=== PATIENT | male | born 1935 | race Caucasian/White ===

== ENCOUNTER 2019-05-05 10:29 | Outpatient (CLI) | payer MEDICARE, BC ==
[2019-05-05] VITALS (17 sets, daily range): BP systolic 107–136; BP diastolic 66–90
== END 2019-05-05 23:59 | disposition home or self-care (01) ==
LOC: CARD DIAG 10:29
PROVIDERS: ATTEND Internal Medicine
DX: R42 Dizziness and giddiness (principal)
CPT/HCPCS: 93660

== ENCOUNTER 2025-02-14 08:54 | Inpatient (IN) | payer BC, MEDICARE, OTHER ==
[~2025-02-14] VITALS: Ht 180.3 cm; Wt 76.9 kg
--- NOTE | 2025-02-14 09:19 | Physician Documentation ---
History of Present Illness General Chief Complaint: Chest Pain Stated Complaint: CP Time Seen by MD: 09:17 History of Present Illness Initial Comments The patient is an 89-year-old male with a history of coronary artery disease (status post three stents and a cardiac catheterization showing a 40% occlusion of a major coronary artery), pacemaker, who is transferred here from [facility] and where he presented with chest pain last night that responded twice to nitroglycerin. He is currently pain-free. The patient's clean out driller is Dr. Demond Kidd at [facility]. Review of Systems ROS Constitutional: Denies chills, fatigue, fever, weight gain or weight loss. HEENT: Denies hearing loss, sinus pressure or visual changes. Respiratory: Denies cough, shortness of breath or wheezing. Cardiovascular: Chest pain. Gastrointestinal: Denies abdominal pain, blood in stool, constipation, diarrhea, heartburn, loss of appetite, nausea or vomiting. Genitourinary: Denies painful urination (dysuria), excessive amount of urine (polyuria) or urinary frequency. Metabolic/Endocrine: Denies cold intolerance, heat intolerance, excessive thirst (polydipsia) or excessive hunger (polyphagia). Neurological: Denies dizziness, extremity numbness, extremity weakness, headaches, seizures or tremors. Psychiatric: Denies anxiety or depression. Integumentary: Denies breast discharge, breast lump, hives, mole change(s), rash or skin lesion. Musculoskeletal: Denies back pain, joint pain, joint swelling or neck pain. Hematologic: Denies easily bleeding, easily bruises, lymphedema or issues with blood clots. Immunologic: Denies food allergies or seasonal allergies. Physical Exam Physical Exam Vital Signs: Temperature: 97.8, Source: Oral, Heart Rate: 60, Respiratory Rate: 12, BP: 147/68, Pulse Oximetry: 98, Weight: 76.900 Oxygen Flow Rate: 0 Physical Exam Physical Exam Vitals and nursing note reviewed. Constitutional: General: Patient is awake, alert, oriented x 4 in no acute distress and well appearing. Speech is clear and lucid. Appearance: Normal appearance. Patient is not ill-appearing, toxic-appearing or diaphoretic. HENT: Head: Normocephalic and atraumatic. Mouth/Throat: Mouth: Mucous membranes are moist. Pharynx: Oropharynx is clear. Eyes: General: No scleral icterus. Extraocular Movements: Extraocular movements intact. Pupils: Pupils are equal, round, and reactive to light. Cardiovascular: Rate and Rhythm: Normal rate and regular rhythm. Heart sounds: No murmur heard. Pulmonary: Effort: No respiratory distress. Breath sounds: No wheezing, rhonchi or rales. Abdominal: General: There is no distension. Palpations: There is no fluid wave, hepatomegaly or mass. Tenderness: There is no abdominal tenderness. There is no guarding. Musculoskeletal: General: No swelling or deformity. Skin: Coloration: Skin is not jaundiced. Findings: No erythema or rash. Neurological: Mental Status: Patient is alert. Progress Results/Orders Results/Orders Orders - SRINATH HUSAIN MD Chest,Single View (02/14/25 09:17) Page Hospitalist (02/14/25 10:10) Completed Orders - SRINATH HUSAIN MD CMP (02/14/25 09:17) Cbc/Diff (02/14/25 09:17) Hs Troponin I W Calculations (02/14/25 09:17) D-Dimer (02/14/25 09:17) Pt Inr (02/14/25 09:17) PBNP (02/14/25 09:17) Chest,Single View (02/14/25 09:17) Electrocardiogram (02/14/25 ) Vital Signs 02/14/25 02/14/25 08:59 09:33 Temp 97.8 Pulse 60 Resp 12 B/P (MAP) 147/68 Pulse Ox 98 97 O2 Delivery Room Air* O2 Flow Rate 0 0 FiO2 N/A Laboratory Tests Test 02/14/25 09:46 White Blood Count 7.2 Red Blood Count 3.99 L Hemoglobin 12.9 L Hematocrit 37.7 L Mean Corpuscular Volume 94.4 Mean Corpuscular Hemoglobin 32.2 H Mean Corpuscular Hemoglobin Concent 34.1 Red Cell Distribution Width 15.6 H Platelet Count 239 Mean Platelet Volume 7.6 Neutrophils (%) (Auto) 66.4 Lymphocytes (%) (Auto) 22.1 Monocytes (%) (Auto) 8.7 Eosinophils (%) (Auto) 2.6 Basophils (%) (Auto) 0.2 Neutrophils # (Auto) 4.8 Lymphocytes # (Auto) 1.6 Monocytes # (Auto) 0.6 Eosinophils # (Auto) 0.2 Basophils # (Auto) 0.0 CBC Comment Prothrombin Time 11.3 INR International Normalized Ratio 1.1 D-Dimer 0.39 D-Dimer Comment Coagulation Comments Sodium Level 146 H Potassium Level 4.2 Chloride Level 108 H Carbon Dioxide Level 30.8 Anion Gap 7 L Blood Urea Nitrogen 16 Creatinine 1.32 H Estimated GFR/1.73 m2 51 BUN/Creatinine Ratio 12.1 Glucose Level 86 Calcium Level 8.5 Total Bilirubin 0.7 Aspartate Amino Transf (AST/SGOT) 28 Alanine Aminotransferase (ALT/SGPT) 23 Alkaline Phosphatase 129 H Troponin I High Sensitivity 20 Pro-B-Type Natriuretic Peptide 1344 H Total Protein 6.6 Albumin 3.0 L Globulin 3.6 Albumin/Globulin Ratio 0.8 L Chemistry Comments Medical Decision Making Findings This 89-year-old male with a strand history of coronary artery disease presents with symptoms consistent with unstable angina, transferred here from [facility]. EKG medically necessary in the evaluation of chest pain and interpreted by me at the time of patient evaluation. Rhythm is atrial paced rhythm with left bundle branch block with a rate of 60. Impression: Abnormal EKG. Departure Disposition: ADMITTED INPATIENT Admitted to Inpatient Unit: to hospitalist Admission Level of Care: PCU with Tele Impression: Primary Impression: Unstable angina Condition: Stable Referrals: NO PRIMARY CARE PROVIDER (PCP) Signature Scribe Signature: . Attestation: . SRINATH HUSAIN MD Feb 14, 2025 09:19
--- NOTE | 2025-02-14 09:28 | ELECTROCARDIOGRAPH REPORT ---
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 Neymar Lowe Measurements Intervals [place] Rate: 60 P: 0 CO: 223 QRS: -1 QRSD: 161 T: 201 QT: 461 QTc: 461 Interpretive Statements Atrial-paced rhythm Left bundle branch block Electronically Signed On 02-22-2025 17:58:[address] Neymar Lowe Please click the below link to view image of tracing.
--- NOTE | 2025-02-14 09:46 | RADIOLOGY REPORT ---
DI CHEST,SINGLE VIEW, HISTORY: Chest pain COMPARISON: None None TECHNICAL DATA: 1 view of the chest was obtained. FINDINGS: Lines and tubes: A cardiac pacer is seen. Cardiomediastinal silhouette: normal Pulmonary vasculature: normal Lung expansion: normal Lung airspace: normal Lung interstitium: normal Pleura: normal Pneumothorax: no Bones: Unremarkable Other: no IMPRESSION: No acute intrathoracic abnormality.
[2025-02-14 10:21] LABS: BASOPHILS % (AUTO) 0.2 % (0-1); EOSINOPHILS # (AUTO) 0.2 X10'3 (0-0.9); EOSINOPHILS % (AUTO) 2.6 % (0-6); HEMATOCRIT 37.7 % (42.0-52.0); HEMOGLOBIN 12.9 g/dl (14.0-17.9); LYMPHOCYTES # (AUTO) 1.6 X10'3 (1.1-4.8); LYMPHOCYTES % (AUTO) 22.1 % (21-51); MEAN CORPUSCULAR HEMOGLOBIN 32.2 PG (27.0-31.0); MEAN CORPUSCULAR HGB CONC 34.1 g/dL (33.0-36.5); MEAN CORPUSCULAR VOLUME 94.4 FL (78-98); MEAN PLATELET VOLUME 7.6 FL (7.4-10.4); MONOCYTES # (AUTO) 0.6 X10'3 (0-0.9); MONOCYTES % (AUTO) 8.7 % (2-12); NEUTROPHILS # (AUTO) 4.8 X10'3 (1.8-7.7); NEUTROPHILS % (AUTO) 66.4 % (42-75); PLATELET COUNT 239 X10'3 (140-440); RED BLOOD COUNT 3.99 X10'6 (4.70-6.10); RED CELL DISTRIBUTION WIDTH 15.6 % (11.5-14.5); WHITE BLOOD COUNT 7.2 X10'3 (4.5-11.0)
[2025-02-14 10:30] LABS: D-DIMER 0.39 MG/L FEU (0-0.50); INR 1.1 INR; PROTHROMBIN TIME 11.3 SECONDS (9.0-12.0)
[2025-02-14 10:44] LABS: ALANINE AMINOTRANSFERASE 23 U/L (12-78); ALBUMIN/GLOBULIN RATIO 0.8 (1.1-1.5); ALKALINE PHOSPHATASE 129 IU/L (46-116); ANION GAP 7 (8-16); ASPARTATE AMINO TRANSFERASE 28 U/L (10-37); BILIRUBIN,TOTAL 0.7 MG/DL (0.1-1.0); BLOOD UREA NITROGEN 16 MG/DL (7-18); BUN/CREATININE RATIO 12.1 (10.0-20.0); CALCIUM 8.5 MG/DL (8.5-10.1); CHLORIDE 108 MMOL/L (99-107); CREATININE 1.32 MG/DL (0.60-1.10); GLUCOSE 86 MG/DL (70-104); POTASSIUM 4.2 MMOL/L (3.5-5.1); PRO BRAIN NATRIURETIC PEPTIDE 1344 PG/ML (0-450); SODIUM 146 MMOL/L (135-145); TOTAL CARBON DIOXIDE 30.8 MMOL/L (24-32); TOTAL PROTEIN 6.6 G/DL (6.4-8.2); eCRCL 41 ML/MIN; eGFR 51 ML/MIN
[2025-02-14] MEDS ORDERED: potassium Cl 40MEQ/1/2NS 520ml 520 ML IV PRN (11:10)
[2025-02-14] MEDS ORDERED: magnesium sulf-water 2g/50mL 50 ML IV PRN (11:10)
[2025-02-14] MEDS ORDERED: morphine 2 MG/ML inj. syringe IV PRN ×2 (11:10)
[2025-02-14] MEDS ORDERED: magnesium Cl slow-release 64mg tablet PO PRN (11:10)
[2025-02-14] MEDS ORDERED: nitroGLYCERIN 0.4mg SUBLingual tab SL PRN ×2 (11:10→17:20)
[2025-02-14] MEDS ORDERED: aminophylline 500mg/20ml vial IV PRN (11:10)
[2025-02-14] MEDS ORDERED: potassium Cl 20 mEq SR tablet PO PRN ×2 (11:10)
[2025-02-14] MEDS ORDERED: HYDROcodone/acetaminophen 5mg/325mg tablet PO PRN (11:10)
[2025-02-14] MEDS ORDERED: metoprolol tartrate 1mg/ml inj IV PRN (11:10)
[2025-02-14] MEDS ORDERED: ondansetron/PF 4mg/2ml inj IV PRN (11:10)
[2025-02-14] MEDS ORDERED: HYDROcodone/acetaminophen 10/325mg tab PO PRN (11:10)
[2025-02-14] MEDS ORDERED: magnesium sulf-water 4G/100mL 100 ML IV PRN (11:10)
[2025-02-14] MEDS ORDERED: acetaminophen 325mg tablet PO PRN ×2 (11:10)
[2025-02-14] MEDS ORDERED: AMLO5TAB16 PO (11:34)
[2025-02-14] MEDS ORDERED: LANS15CA18 PO (11:34)
[2025-02-14] MEDS ORDERED: MULT-1085 PO (11:34)
[2025-02-14] MEDS ORDERED: TELM40TA8 PO (11:34)
[2025-02-14] MEDS ORDERED: PANT40TA54 PO (11:34)
[2025-02-14] MEDS ORDERED: ATOR-2 PO (11:34)
[2025-02-14] MEDS ORDERED: ASPI-1265 PO (11:34)
[2025-02-14] MEDS ORDERED: METO-395 PO (11:34)
[2025-02-14] MEDS ORDERED: AMI200T PO (11:34)
[2025-02-14] MEDS ORDERED: OMEG1CAP61 PO (11:34)
[2025-02-14] MEDS ORDERED: CLOP75TA34 PO (11:34)
[2025-02-14] MEDS ORDERED: LANS30CA56 PO (11:34)
[2025-02-14] MEDS ORDERED: APIX2.5T PO (11:34)
--- NOTE | 2025-02-14 16:42 | HISTORY AND PHYSICAL-Residence ---
History & Physical Providers to CC Resident Creating Document: LENIN KLEIN, RES ~ History of Present Illness Primary Medical Doctor: PCP: In [place] Reason for Admit\Complaint: Chest pain History of Present Illness PCP: The patient does not remember the name, PCP in [place] Trauma Counsellor: Bernabe Garland. 89-year-old male patient with past medical history of diabetes mellitus, hypertension, ACS, strokes, Claros's esophagus, skin cancer, came to the hospital with chief complaint of chest pain. The patient states that he had a chest pain last night approximately 930 p.m. while the patient was laying down. The patient describes this chest pain as a pressure type, for over 10 in intensity, radiation to the left arm, he denies any sweating or shortness of breath. At that time the patient decided to take nitroglycerin which he had which helped with the pain until complete resolution. The resolution of the pain last for approximately 2 minutes and the pain came back again reason for which he decided to take a 2nd nitroglycerin which helped to relieve the pain. His was concerned and the patient was taken to [facility]. Due to the concern of acute coronary syndrome the patient was transferred to [facility]. Allergies: Coded Allergies: No Known Allergies (Unverified , 02/14/25) Home Medications Home Medications Active Reported Lovaza* ([place]-3 Acid Ethyl Esters*) 1 Gm Capsule 2 Cap PO Q12H 30 Days Multi Vitamin Daily (Multivitamin) 1 Each Tablet 1 Tab PO DAILY 30 Days Aspirin 81 Mg Tab.chew 1 Tab PO DAILY 30 Days Clopidogrel (Clopidogrel Bisulfate) 75 Mg Tablet 1 Tab PO DAILY 30 Days Do not stop medication unless instructed by prescriber. Lansoprazole 15 Mg Capsule.dr 1 Cap PO DAILY 30 Days Amlodipine Besylate 5 Mg Tablet 1 Tab PO DAILY Lansoprazole 30 Mg Capsule.dr 1 Cap PO DAILY Eliquis (Apixaban) 2.5 Mg Tablet 1 Tab PO BID Metoprolol Succinate 25 Mg Tab.sr.24h 1 Tab PO QAM Atorvastatin Calcium 80 Mg Tablet 1 Tab PO DAILY Telmisartan 40 Mg Tablet 1 Tab PO DAILY Pantoprazole Sodium 40 Mg Tablet.dr 1 Tab PO QAM Cordarone (Amiodarone HCl) 200 Mg Tablet 200 Mg PO DAILY Past Medical History Past Medical History Diabetes mellitus. Hypertension. ACS s/p five stents. 2 strokes. GERD. Claros esophagus. Skin cancer. Past Surgical History Surgical History Comment S/p five stents. S/p pacemaker. 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 HEENT: Conjunctive are pink, sclerae clear, no icterus, pupil is equal in both sides, reactive to light, no ear discharge, no pharyngeal erythema or an edema. Neck: Supple, no JVD, no lymphadenopathy and thyromegaly. Chest: Equal air entry on both lungs, no additional sounds no rhonchi no wheezing at the moment. Presence of pacemaker in the left side of the chest Cardiovascular: S1-S2 regular sinus rhythm and, regular rate, no gallops, no rubs, no murmurs Abdomen: No visible peristalsis, Bowel sounds present on auscultation, soft, nontender, no guarding, no rigidity Extremities: No obvious deformities, no pitting edema bilaterally, capillary refill intact, peripheral pulsations are intact on both sides Central Nervous System: No focal neurological deficits, no motor or sensory weakness in all 4 extremities, could move all 4 extremities, 2+ deep tendon reflexes, negative Babinski. Musculoskeletal: No joint swelling, deformities, inflammations, and no scoliosis and back tenderness Skin: Warm and dry. Diagnostic Data Last Recorded Lab Results: 02/14/25 0946 02/14/25 0946 Diagnostic Data: Laboratory Tests Test 02/14/25 09:46 Prothrombin Time 11.3 SECONDS (9.0-12.0) INR International Normalized Ratio 1.1 INR D-Dimer 0.39 MG/L FEU (0-0.50) D-Dimer Comment Coagulation Comments Advance Care Planning Advanced Care plannin - 30 Minutes (I spent a total of 17 minutes on reviewing various resuscitative measures/ACP with the patient at the time of admission. The patient has decided on a full code status.) Additional Plan Assessment and plan: 89-year-old male patient came to the hospital transferred from [facility] with chief complaint of chest pain. Chest pain: To rule out ACS: Heart score: 5 points: History of CAD S/p 5 stents: The patient came to the hospital with chief complaint of chest pain, pressure type, radiation to the left upper extremity. EKG, atrial paced rhythm, left bundle-branch block. Heart rate 60, normal axis deviation. Echocardiogram: LVEF 40-45%, RVSP 31 mmHg. Troponin levels within reference range. Aspirin 81 mg daily. Metoprolol 25 mg daily. Nitroglycerin 0.4 mg SL PRN. Follow-up Lexiscan in a.m. Possible prerenal MANI on CKD likely secondary to dehydration: Creatinine 1.32, GFR 51, BUN/creatinine ratio 12.1. Unknown baseline creatinine. Follow-up urine lytes. NS at 20 mL/hour. Normocytic normochromic anemia: Hemoglobin 12.9, hematocrit 37.7, MCV 94.4. Follow-up iron studies. Barretts esophagus: GERD: Protonix 40 mg daily. Hypertension: Current blood pressure 142/66. Continue metoprolol 25 mg daily. AFib rate controlled: Symptomatic bradycardia, s/p pacemaker: We will continue metoprolol 25 mg daily. We will continue apixaban after med reconciliation. Code status: Full code DVT prophylaxis: Heparin 5000 units b.i.d. Analgesia/sedation: Carefree Line/tube: PIV GI prophylaxis: Protonix Nutrition: Heart healthy diet. NPO after midnight. PT: Ordered Prognosis: Guarded Disposition: The patient will be admitted to PCU with telemetry. Lenin Elizabeth Internal Medicine Resident [facility] Date of Service: Feb 14, 2025 Billing Provider: RAISSA CAPELLAN MD Common Visit Codes: 73247-BDZRUEZ INP/OBS CARE (HIGH) Secondary Visit Codes: 61416-[id number] CARE PLAN 30 MINUTES LENIN KLEIN, RES Feb 14, 2025 16:42 RAISSA CAPELLAN MD Feb 14, 2025 17:58
[2025-02-14] MEDS ORDERED: DEXT15DR7 OP (17:33)
[2025-02-14] MEDS: normal saline 1000ml 1,000 ML IV SCH (17:55)
[2025-02-14 18:14] LABS: CHOL/HDL RATIO 2.5 (0.00-4.99); CHOLESTEROL 129 MG/DL (0-200); HDL CHOLESTEROL 51 MG/DL (35-60); LDL CHOLESTEROL 62 MG/DL (50-100); TRIGLYCERIDES 56 MG/DL (20-135)
--- NOTE | 2025-02-14 18:55 | CARDIOLOGY REPORT ---
APPROVED REPORT EXAM: Comprehensive 2D, Doppler, and color-flow Echocardiogram. Patient Location: ER 4 Heart Rate: 60's bpm Rhythm: SINUS Indications CHEST PAIN STENTS x5 PACEMAKER ELEVATED PBNP (1344) 2D Dimensions RVDd 3.2 cm IVSd 1.1 (0.7-1.1cm) LVDd 5.0 cm PWd 1.2 (0.7-1.1cm) IVSs 1.2 (0.8-1.2cm) LVDs 3.9 (2.5-4.0cm) PWs 1.2 (0.8-1.2cm) LVOT Diameter 2.19 (1.8-2.4cm) Ao Asc Diam.3.57 cmFS (%) 21.3 % SV 50.5 ml CO 3.1 L/min M-Mode Dimensions Left Atrium(MM) 3.50 (2.5-4.0cm) Aortic Root 3.93 (2.2-3.7cm) Aortic Valve AoV Peak [place]. 329.0 cm/s AoV VTI 82.5 cm AO Peak GR. 43.3 mmHg AO Mean GR. 24 mmHg LVOT VTI 23.84 cm LVOT Peak [place]. 93.0 cm/s BRENDA(VTI)/BSA 1.08 cm2/m2 BRENDA (VTI) 1.08 cm2 Mitral Valve MV E Velocity 74.7 cm/s MV Peak Gr. 2 mmHg MV DECEL TIME 192 ms MV A Velocity 142.4 cm/s MV PHT 64 ms E/A Ratio 0.5 MVA (PHT) 3.44 cm2 MV VMax70.0 cm/s Tricuspid Valve TR P. Velocity 230 cm/s RAP ESTIMATE 10 mmHg TR Peak Gr. 21 mmHg RVSP 31 mmHg LEFT VENTRICLE Normal LV size and wall thickness. Overall systolic function is moderately reduced. LVEF is 35%. RIGHT VENTRICLE RV is normal size and function. Pacemaker wire in right heart. RVSP is estimated at 31 mmHg. ATRIA The left atrium size is normal. AORTIC VALVE Trileaflet AV appears sclerotic without stenosis. BRENDA is measured at 1.08 cmsq. Peak / mean gradients of 43/24 mmHG. Peak velocity is measured at 329 cm/s. 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 MITRAL VALVE Mild MV annular calcification without stenosis. Mild regurgitation. TRICUSPID VALVE TV appears structurally normal with trace regurgitation. PULMONIC VALVE Normal PV without stenosis, physiologic insufficiency. GREAT VESSELS Aortic root is mildly dilated. IVC is not well visualized. PERICARDIUM Normal pericardium. No effusion. Conclusion Normal LV size and wall thickness. Overall systolic function is moderately reduced. LVEF is 35%. RV is normal size and function. Pacemaker wire in right heart. RVSP is estimated at 31 mmHg. The left atrium size is normal. Trileaflet AV appears sclerotic without stenosis. BRENDA is measured at 1.08 cmsq. Peak / mean gradien ts of 43/24 mmHG. Peak velocity is measured at 329 cm/s. Stenosis severity is likely severe, but f ails to meet criteria due to low flow/ low gradient conditions.Trace insufficiency. Mild MV annular calcification without stenosis. Mild regurgitation. TV appears structurally normal with trace regurgitation. Aortic root is mildly dilated. Normal pericardium. No effusion.
[2025-02-14 19:14] LABS: FERRITIN 97 NG/ML (26-388)
[2025-02-14 19:21] LABS: TOTAL IRON BINDING CAPACITY 295 UG/DL (259-388)
[2025-02-14 19:30] VITALS: BP 124/51; PULSE 60; RESP 12; TEMP 98.1; O2SAT 96
[2025-02-14 19:39] LABS: % IRON SATURATION 16 % (11-46); IRON 48 UG/DL (53-167)
[2025-02-14 20:00] VITALS: RESP 12; O2SAT 96
[2025-02-14] MEDS: heparin, porcine 5000 units/ml vial SQ SCH (21:18)
[2025-02-15] VITALS (14 sets, daily range): BP systolic 116–154; BP diastolic 53–75; PULSE 60–67; RESP 13–18; TEMP 97.6–98.5; O2SAT 95–100
[2025-02-15 06:53] LABS: BASOPHILS % (AUTO) 0.3 % (0-1); EOSINOPHILS # (AUTO) 0.2 X10'3 (0-0.9); EOSINOPHILS % (AUTO) 3.1 % (0-6); HEMATOCRIT 35.3 % (42.0-52.0); LYMPHOCYTES # (AUTO) 1.7 X10'3 (1.1-4.8); LYMPHOCYTES % (AUTO) 22.9 % (21-51); MEAN CORPUSCULAR HEMOGLOBIN 31.8 PG (27.0-31.0); MEAN CORPUSCULAR VOLUME 93.6 FL (78-98); MEAN PLATELET VOLUME 7.7 FL (7.4-10.4); MONOCYTES # (AUTO) 0.7 X10'3 (0-0.9); MONOCYTES % (AUTO) 9.9 % (2-12); NEUTROPHILS # (AUTO) 4.7 X10'3 (1.8-7.7); NEUTROPHILS % (AUTO) 63.8 % (42-75); PLATELET COUNT 243 X10'3 (140-440); RED BLOOD COUNT 3.78 X10'6 (4.70-6.10); RED CELL DISTRIBUTION WIDTH 15.1 % (11.5-14.5); WHITE BLOOD COUNT 7.4 X10'3 (4.5-11.0)
[2025-02-15 07:07] LABS: ALANINE AMINOTRANSFERASE 23 U/L (12-78); ALBUMIN 2.6 G/DL (3.4-5.0); ALBUMIN/GLOBULIN RATIO 0.8 (1.1-1.5); ALKALINE PHOSPHATASE 113 IU/L (46-116); ANION GAP 7 (8-16); ASPARTATE AMINO TRANSFERASE 27 U/L (10-37); BILIRUBIN,TOTAL 0.7 MG/DL (0.1-1.0); BLOOD UREA NITROGEN 15 MG/DL (7-18); BUN/CREATININE RATIO 11.9 (10.0-20.0); CALCIUM 8.3 MG/DL (8.5-10.1); CHLORIDE 110 MMOL/L (99-107); CREATININE 1.26 MG/DL (0.60-1.10); GLUCOSE 90 MG/DL (70-104); SODIUM 145 MMOL/L (135-145); TOTAL CARBON DIOXIDE 27.6 MMOL/L (24-32); TOTAL PROTEIN 5.9 G/DL (6.4-8.2); eCRCL 43 ML/MIN; eGFR 54 ML/MIN
[2025-02-15] MEDS: metoprolol succinate 25mg (24-HOUR) SR. Tablet PO SCH (08:41)
[2025-02-15] MEDS: pantoprazole 40mg Tablet.DR PO SCH (08:41)
[2025-02-15 08:54] LABS: FREE T4 (FREE THYROXINE) 0.82 NG/DL (0.73-1.40)
[2025-02-15] MEDS: regadenoson 0.4mg/5ml syringe IV PRN (10:46)
[2025-02-15] MEDS: aspirin 81mg tab.chew PO SCH (12:27)
--- NOTE | 2025-02-15 12:38 | RADIOLOGY REPORT ---
EXAM: NM NM BERYL SCAN HISTORY: unstable angina, history of coronary artery disease COMPARISON: None TECHNIQUE: REST STUDY: 8 mCi of Technetium 99m-Tetrofosmin. STRESS STUDY: 38 mCi of Technetium 99m-Tetrofosmin. The patient was stressed with regadenoson 0.4 mg IV. Cardiac-gated tomographic images of the heart were obtained in the short and long axis projections. I mages were obtained at rest and immediately following stress. Stress and rest images were performed o n the same day. FINDINGS: There is thinning of the inferior wall of the left ventricle near the base, greater on the rest image s. No other perfusion defects are identified on the stress or rest images. Wall motion analysis demon strates hypokinesis, greatest in the inferior wall. Left ventricular ejection fraction is 45%. TID 1. 09. IMPRESSION: 1. 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 2. No evidence of stress-induced ischemia. 3. Left ventricular hypokinesis, greatest along the inferior wall, with mildly low left ventricular e jection fraction of 45%.
--- NOTE | 2025-02-15 15:30 | CONSULTATION REPORT ---
History of Present Illness Providers to CC CC: KAYLAH ZAVALA MD; ANJANA QURESHI MD ~ Reason for Admit\Admit Dx: Cardiology consultation Refering MD: PCP: In [place] History of Present Illness This is an 89-year-old male who presents secondary to chest pain. He originally presented to [facility] and was transferred for higher level of care. He has past medical history significant for CVA (residual dizziness), CAD with hx of stents, HLD, DMII (diet controlled), a-fib, PPM. Has had chest pain in the left chest described as squeezing with sharp pain down his left arm. No associated shortness for breath, nausea, vomiting, diaphoresis. No lower extremity edema. Denies dyspnea on exertion. Denies recent illness, fevers, chills. Patient underwent nuclear stress test that revealed old infarct to the inferior wall and no reversible ischemia. TTE demonstrates LVEF 35%. AV moderate stenosis. BRENDA 1.0 cm2, mean gradient 24 mm of mercury and peak velocity 329 cm/sec. Mild MR, trace TR. Chest x-ray with no acute cardiopulmonary pathology. EKG atrial paced. Currently, the patient is resting comfortably in bed. Denies current chest pain or pressure. No shortness a breath. Allergies: Coded Allergies: No Known Allergies (Unverified , 02/14/25) Home Medications Home Medications Active Reported Artificial Tears Eye Drops (Dextran 70/Hypromellose) 15 Ml Drops 15 Ml OP Lovaza* ([place]-3 Acid Ethyl Esters*) 1 Gm Capsule 2 Cap PO Q12H 30 Days Multi Vitamin Daily (Multivitamin) 1 Each Tablet 1 Tab PO DAILY 30 Days Aspirin 81 Mg Tab.chew 1 Tab PO DAILY 30 Days Eliquis (Apixaban) 2.5 Mg Tablet 1 Tab PO BID Metoprolol Succinate 25 Mg Tab.sr.24h 1 Tab PO QAM Atorvastatin Calcium 80 Mg Tablet 1 Tab PO DAILY Telmisartan 40 Mg Tablet 1 Tab PO DAILY Pantoprazole Sodium 40 Mg Tablet.dr 1 Tab PO QAM Past Medical History Medical History Comment Diabetes mellitus, diet controlled Question of GERD versus Claros's esophagus. Pending GI follow up Coronary artery disease with multiple stents in the past. CVA with residual dizziness Atrial fibrillation on Eliquis Hypertension Past Surgical History Surgical History Comment Pacemaker Coronary angiogram with stents (unknown anatomy) Past Family History Family History Comment Noncontributory Past Social History Social History Comment Patient is a lifelong nonsmoker. Has not drank alcohol for many years. No recreational drug use. Lives with . Physical Exam Last Vital Signs Recorded: RN Vital Signs have been reviewed: Yes, Temperature: 98.1, Source: Oral, Heart Rate: 60, Respiratory Rate: 16, BP: 133/59, Pulse Oximetry: 99, Weight: 76.900 Physical Exam General: Awake, alert, oriented. No apparent distress Neck: Supple. Normal range of motion. No JVD Respiratory: Lungs are clear to auscultation bilaterally. No respiratory distress. Chest: Normal shape and size. No accessory muscle use. Cardiovascular: Regular rate and rhythm. S1-S2. I/IV NANDO RUSB. Gastrointestinal: Abdomen is soft. Nontender to palpation. Extremities: No lower extremity edema, cyanosis or clubbing. Psychiatric: Normal mood and affect. Skin: Normal color. Warm and dry. Review of Systems ROS Patient chest pain which has resolved. No associated shortness for breath, nausea, vomiting, diaphoresis. No recent illness, fevers or chills. Was asked, but otherwise denies review of systems. Results EKG EKG EKG atrial paced. No acute ST changes. Echocardiogram Echocardiogram EXAM: Comprehensive 2D, Doppler, and color-flow Echocardiogram. Patient Location: ER 4 Heart Rate: 60's bpm Rhythm: SINUS Indications CHEST PAIN STENTS x5 PACEMAKER ELEVATED PBNP (1344) 2D Dimensions RVDd 3.2 cm IVSd 1.1 (0.7-1.1cm) LVDd 5.0 cm PWd 1.2 (0.7-1.1cm) IVSs 1.2 (0.8-1.2cm) LVDs 3.9 (2.5-4.0cm) PWs 1.2 (0.8-1.2cm) LVOT Diameter 2.19 (1.8-2.4cm) Ao Asc Diam. 3.57 cm FS (%) 21.3 % SV 50.5 ml CO 3.1 L/min M-Mode Dimensions Left Atrium(MM) 3.50 (2.5-4.0cm) Aortic Root 3.93 (2.2-3.7cm) Aortic Valve AoV Peak [place]. 329.0 cm/s AoV VTI 82.5 cm AO Peak GR. 43.3 mmHg AO Mean GR. 24 mmHg LVOT VTI 23.84 cm LVOT Peak [place]. 93.0 cm/s BRENDA(VTI)/BSA 1.08 cm2/m2 BRENDA (VTI) 1.08 cm2 Mitral Valve MV E Velocity 74.7 cm/s MV Peak Gr. 2 mmHg MV DECEL TIME 192 ms MV A Velocity 142.4 cm/s MV PHT 64 ms E/A Ratio 0.5 MVA (PHT) 3.44 cm2 MV VMax 70.0 cm/s Tricuspid Valve TR P. Velocity 230 cm/s RAP ESTIMATE 10 mmHg TR Peak Gr. 21 mmHg RVSP 31 mmHg LEFT VENTRICLE Normal LV size and wall thickness. Overall systolic function is moderately reduced. LVEF is 35%. RIGHT VENTRICLE RV is normal size and function. Pacemaker wire in right heart. RVSP is estimated at 31 mmHg. ATRIA The left atrium size is normal. AORTIC VALVE Trileaflet AV appears sclerotic without stenosis. BRENDA is measured at 1.08 cmsq. Peak / mean gradients of 43/24 mmHG. Peak velocity is measured at 329 cm/s. 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 MITRAL VALVE Mild MV annular calcification without stenosis. Mild regurgitation. TRICUSPID VALVE TV appears structurally normal with trace regurgitation. PULMONIC VALVE Normal PV without stenosis, physiologic insufficiency. GREAT VESSELS Aortic root is mildly dilated. IVC is not well visualized. PERICARDIUM Normal pericardium. No effusion. Conclusion Normal LV size and wall thickness. Overall systolic function is moderately reduced. LVEF is 35%. RV is normal size and function. Pacemaker wire in right heart. RVSP is estimated at 31 mmHg. The left atrium size is normal. Trileaflet AV appears sclerotic without stenosis. BRENDA is measured at 1.08 cmsq. Peak / mean gradients of 43/24 mmHG. Peak velocity is measured at 329 cm/s. 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 Mild MV annular calcification without stenosis. Mild regurgitation. TV appears structurally normal with trace regurgitation. Aortic root is mildly dilated. Normal pericardium. No effusion. Dictated by:LUDMILA LONDONO MD Dictation date and time:02/14/25 2474 Electronically Signed by: LUDMILA LONDONO MD Date and Time: 02/14/25 1855 Cardiac Stress Test Cardiac Stress Test EXAM: NM NM BERLY SCAN HISTORY: unstable angina, history of coronary artery disease COMPARISON: None TECHNIQUE: REST STUDY: 8 mCi of Technetium 99m-Tetrofosmin. STRESS STUDY: 38 mCi of Technetium 99m-Tetrofosmin. The patient was stressed with regadenoson 0.4 mg IV. Cardiac-gated tomographic images of the heart were obtained in the short and long axis projections. Images were obtained at rest and immediately following stress. Stress and rest images were performed on the same day. FINDINGS: There is thinning of the inferior wall of the left ventricle near the base, greater on the rest images. No other perfusion defects are identified on the stress or rest images. Wall motion analysis demonstrates hypokinesis, greatest in the inferior wall. Left ventricular ejection fraction is 45%. TID 1.09. IMPRESSION: 1. 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 2. No evidence of stress-induced ischemia. 3. Left ventricular hypokinesis, greatest along the inferior wall, with mildly low left ventricular ejection fraction of 45%. Electronically Signed by:MAHI COPELAND MD Date & Time: 02/15/25 123 Dictated by: MAHI COPELAND MD Dictation date and time: 02/15/251234 X-ray X-ray DI CHEST,SINGLE VIEW, HISTORY: Chest pain COMPARISON: None None TECHNICAL DATA: 1 view of the chest was obtained. FINDINGS: Lines and tubes: A cardiac pacer is seen. Cardiomediastinal silhouette: normal Pulmonary vasculature: normal Lung expansion: normal Lung airspace: normal Lung interstitium: normal Pleura: normal Pneumothorax: no Bones: Unremarkable Other: no IMPRESSION: No acute intrathoracic abnormality. Electronically Signed by:JF BUI MD Date & Time: 02/14/2544 Diagram Lab Result Diagram: 02/15/2561102/15/25 0612 Lab Results Hemoglobin A1c 6.0 ProBNP 1344 High sensitivity troponin 20 TSH 11.90 Free T4 0.82 Triglycerides 56, total cholesterol 129, LDL 62, HDL 51 Assessment/Plan Additional Plan This is an 89-year-old male who presents for chest pain. The following is his problem list: Angina High sensitivity troponin negative Stress test without reversible ischemia Angiogram April 2024 with no obstructive coronary artery disease --Recommend continued outpatient follow-up with his primary presales consultant, Dr. Qureshi --continue beta-blockers. --Consider addition of isosorbide. History of coronary artery disease --continue high-intensity statin with goal LDL less than 55 --continue outpatient follow up with primary presales consultant. Heart failure with reduced ejection fraction TTE reveals LVEF of 35% --recommend that amlodipine be stopped --continue metoprolol succinate 25 mg daily. --continue Telmisartan and consider transitioning to Entresto --recommend starting Jardiance 10 mg daily --consider addition of spironolactone mg daily --follow up closely with primary presales consultant. Aortic stenosis, moderate Aortic valve area 1.08 cm2, mean gradient 24 mm of mercury and peak velocity 3.29 m/sec. May represent low-flow, low gradient severe aortic stenosis. --recommend repeat echocardiogram as per primary presales consultant. Paroxysmal atrial fibrillation Currently atrial paced rhythm --continue Eliquis. Other comorbidities: Diabetes mellitus with hemoglobin A1c 6.0 Hypertension Question of Barretts esophagus History of CVA Pacemaker in-situ Case was discussed with Dr. Harman Zavala. He is in agreement with the above plan. Supervising MD Supervising Physician: MARIAMA Mejía NP Feb 15, 2025 15:30
--- NOTE | 2025-02-15 16:28 | PROGRESS NOTE- Residence ---
Progress Note - Resident Providers to CC Resident Creating Document: LENIN KLEIN, RES ~ Antibiotic Timeout Antibiotic Ordered?: No Subjective The patient has been evaluated at bedside. The patient currently denies any symptoms. Chest pain currently resolved. Objective Vital Signs Date Time Temp Pulse Resp B/P (MAP) Pulse Ox O2 Delivery O2 Flow Rate FiO2 02/15/25 10:52 60 16 133/59 99 Room Air 0.0 02/15/25 07:16 98.1 02/14/25 09:33 N/A Physical exam: General: Well alert, well oriented, not confused, not agitated, not in acute distress, well cooperated during the physical. HEENT: Conjunctive are pink, sclerae clear, no icterus, pupil is equal in both sides, reactive to light, no ear discharge, no pharyngeal erythema or an edema. Neck: Supple, no JVD, no lymphadenopathy and thyromegaly. Chest: Equal air entry on both lungs, no additional sounds no rhonchi no wheezing at the moment. Presence of pacemaker in the left side of the chest Cardiovascular: S1-S2 regular sinus rhythm and, regular rate, no gallops, no rubs, no murmurs Abdomen: No visible peristalsis, Bowel sounds present on auscultation, soft, nontender, no guarding, no rigidity Extremities: No obvious deformities, no pitting edema bilaterally, capillary refill intact, peripheral pulsations are intact on both sides Central Nervous System: No focal neurological deficits, no motor or sensory weakness in all 4 extremities, could move all 4 extremities, 2+ deep tendon reflexes, negative Babinski. Musculoskeletal: No joint swelling, deformities, inflammations, and no scoliosis and back tenderness Skin: Warm and dry. Result Diagram: 02/15/25 0612 02/15/25 0612 Coagulation Studies Laboratory Tests Test 02/14/25 09:46 Prothrombin Time 11.3 SECONDS (9.0-12.0) INR International Normalized Ratio 1.1 INR D-Dimer 0.39 MG/L FEU (0-0.50) D-Dimer Comment Coagulation Comments Assessment Assessment 89-year-old male patient came to the hospital transferred from [facility] with chief complaint of chest pain. Plan Plan ACS-ruled out: History of CAD S/p 5 stents: Chronic systolic congestive heart failure with reduced ejection fraction of 35%, not in acute exacerbation: The patient came to the hospital with chief complaint of chest pain, pressure type, radiation to the left upper extremity. EKG, atrial paced rhythm, left bundle-branch block. Heart rate 60, normal axis deviation. Echocardiogram: LVEF 40-45%, RVSP 31 mmHg. Troponin levels within reference range. Aspirin 81 mg daily. Metoprolol 25 mg daily. Nitroglycerin 0.4 mg SL PRN. Follow-up Lexiscan in a.m. 02/15/2025: Lexiscan: Old infarct of the left ventricular inferior wall near the base. No evidence of stress-induced ischemia. Left ventricular hypokinesis, greatest along the inferior wall, with mildly low left ventricular ejection fraction of 45%. Echocardiogram: Normal LV size and wall thickness. Overall systolic function is moderately reduced. LVEF is 35%. RV is normal size and function. Pacemaker wire in right heart. RVSP is estimated at 31 mmHg. The left atrium size is normal. Trileaflet AV appears sclerotic without stenosis. BRENDA is measured at 1.08 cmsq. Peak / mean gradients of 43/24 mmHG. Peak velocity is measured at 329 cm/s. 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 Mild MV annular calcification without stenosis. Mild regurgitation. TV appears structurally normal with trace regurgitation. Aortic root is mildly dilated. Normal pericardium. No effusion. Cardiology Dr. Harman friedman was consulted who recommends: Outpatient follow-up with his primary supervisor phosphoric acid Dr. Kidd. Continue beta-blockers, isosorbide, high- intensity statin with LDL goal less than 55. For systolic CHF: Recommended to stop amlodipine. Recommended: Metoprolol succinate 25 mg daily. Telmisartan maybe transition it to Entresto. Jardiance 10 mg daily. Spironolactone 25 mg daily. Possible prerenal MANI on CKD likely secondary to dehydration: Creatinine 1.32, GFR 51, BUN/creatinine ratio 12.1. Unknown baseline creatinine. Follow-up urine lytes. NS at 20 mL/hour. 02/15/2025: Creatinine levels trending down. Continue NS at 20 mL/hour. Normocytic normochromic anemia: Hemoglobin 12.9, hematocrit 37.7, MCV 94.4. Follow-up iron studies. 02/15/2025: Iron 48, TIBC, 295, ferritin 97. Showing anemia of chronic disease. Barretts esophagus: GERD: Protonix 40 mg daily. Hypertension: Current blood pressure 133/59. Continue metoprolol 25 mg daily. AFib rate controlled: Symptomatic bradycardia, s/p pacemaker: We will continue metoprolol 25 mg daily. Currently on Eliquis 2.5 mg b.i.d. Code status: Full code DVT prophylaxis: Currently on Eliquis. Analgesia/sedation: [place]/tube: PIV GI prophylaxis: Protonix Nutrition: Heart healthy diet. PT: Ordered Prognosis: Guarded Disposition: Continue medical management. Anticipated discharge tomorrow. Lenin Elizabeth Internal Medicine Resident [facility] Date of Service: Feb 15, 2025 Billing Provider: RAISSA CAPELLAN MD Common Visit Codes: [id number] INP/OBS CARE(HIGH) LENIN KLEIN, RES Feb 15, 2025 16:28 RAISSA CAPELLAN MD Feb 15, 2025 17:42
[2025-02-15] MEDS: EMPAGLIFLOZIN 10 MG TABLET PO SCH (17:39)
[2025-02-15 19:03] LABS: TOTAL PROTEIN,URINE RANDOM 12.1 MG/DL
[2025-02-15] MEDS: apixaban 2.5mg tablet PO SCH (20:50)
[2025-02-15] MEDS: OMEGA-3/DHA/EPA/FISH OIL 1 EACH CAPSULE.DR PO SCH (20:52)
[2025-02-15] MEDS: normal saline 1000ml 1,000 ML IV SCH (21:03)
[2025-02-16 06:00] VITALS: BP 131/57; PULSE 60; RESP 21; TEMP 98.3; O2SAT 98
[2025-02-16 06:04] LABS: BASOPHILS % (AUTO) 0.5 % (0-1); EOSINOPHILS # (AUTO) 0.2 X10'3 (0-0.9); EOSINOPHILS % (AUTO) 2.7 % (0-6); HEMATOCRIT 36.1 % (42.0-52.0); HEMOGLOBIN 12.1 g/dl (14.0-17.9); LYMPHOCYTES # (AUTO) 1.9 X10'3 (1.1-4.8); LYMPHOCYTES % (AUTO) 23.2 % (21-51); MEAN CORPUSCULAR HEMOGLOBIN 31.5 PG (27.0-31.0); MEAN CORPUSCULAR HGB CONC 33.5 g/dL (33.0-36.5); MEAN CORPUSCULAR VOLUME 94.3 FL (78-98); MEAN PLATELET VOLUME 7.9 FL (7.4-10.4); MONOCYTES # (AUTO) 0.8 X10'3 (0-0.9); MONOCYTES % (AUTO) 9.3 % (2-12); NEUTROPHILS # (AUTO) 5.3 X10'3 (1.8-7.7); NEUTROPHILS % (AUTO) 64.3 % (42-75); PLATELET COUNT 238 X10'3 (140-440); RED BLOOD COUNT 3.83 X10'6 (4.70-6.10); RED CELL DISTRIBUTION WIDTH 15.2 % (11.5-14.5); WHITE BLOOD COUNT 8.2 X10'3 (4.5-11.0)
[2025-02-16 06:18] LABS: ALANINE AMINOTRANSFERASE 22 U/L (12-78); ALBUMIN 2.8 G/DL (3.4-5.0); ALBUMIN/GLOBULIN RATIO 0.8 (1.1-1.5); ALKALINE PHOSPHATASE 115 IU/L (46-116); ANION GAP 8 (8-16); ASPARTATE AMINO TRANSFERASE 34 U/L (10-37); BILIRUBIN,TOTAL 0.9 MG/DL (0.1-1.0); BLOOD UREA NITROGEN 18 MG/DL (7-18); BUN/CREATININE RATIO 11.8 (10.0-20.0); CALCIUM 8.5 MG/DL (8.5-10.1); CHLORIDE 107 MMOL/L (99-107); CREATININE 1.52 MG/DL (0.60-1.10); GLUCOSE 86 MG/DL (70-104); POTASSIUM 3.8 MMOL/L (3.5-5.1); SODIUM 142 MMOL/L (135-145); TOTAL CARBON DIOXIDE 26.8 MMOL/L (24-32); TOTAL PROTEIN 6.2 G/DL (6.4-8.2); eCRCL 36 ML/MIN; eGFR 43 ML/MIN
[2025-02-16] MEDS: losartan 50mg tablet PO SCH (07:32)
[2025-02-16] MEDS: multivitamins, therapeutics tablet PO SCH (07:36)
[2025-02-16] MEDS: atorvastatin 20mg tablet PO SCH (07:37)
[2025-02-16] MEDS: spironolactone 25 MG tablet PO SCH (07:38)
[2025-02-16 07:47] VITALS: RESP 21; O2SAT 98
[2025-02-16] MEDS ORDERED: EMPA10TA PO (09:43)
[2025-02-16] MEDS ORDERED: SPIR25TA5 PO (09:43)
[2025-02-16 11:00] VITALS: BP 128/44; PULSE 60; RESP 18; TEMP 98.6; O2SAT 97
--- NOTE | 2025-02-16 12:18 | DISCHARGE SUMMARY-Residence ---
Discharge Summary Providers to CC Resident Creating Document: ELROYELROY GONZALESLENIN Pearce, RES ~ Discharge Summary Admission Diagnosis: unstable angina , CAD , s/p cardiac stent Hospital Course DATE OF ADMISSION: 02/14/2025 DATE OF DISCHARGE: 02/16/2025 Discharge Diagnosis\Comment: Chest pain likely secondary to stable angina ACS-ruled out History of CAD S/p 5 stents Chronic systolic congestive heart failure with reduced ejection fraction of 35%, not in acute exacerbation Possible prerenal MANI on CKD likely secondary to dehydration Normocytic normochromic anemia secondary to anemia of chronic disease. Barretts esophagus GERD Hypertension AFib rate controlled Symptomatic bradycardia, s/p pacemaker Operations\Procedures: Marvin Consultants: Cardiology. Dr. Zavala Complications: None Condition on DC: Stable New Medications: Empagliflozin (Jardiance) 10 Mg Tablet 1 TAB PO DAILY for 30 Days, #30 TAB 0 Refills Spironolactone (Spironolactone) 25 Mg Tablet 1 TAB PO DAILY for 30 Days, #30 TAB 0 Refills Continued Medications: Apixaban (Eliquis) 2.5 Mg Tablet 1 TAB PO BID Aspirin (Aspirin) 81 Mg Tab.chew 1 TAB PO DAILY for 30 Days, #30 TAB Atorvastatin Calcium (Atorvastatin Calcium) 80 Mg Tablet 1 TAB PO DAILY Dextran 70/Hypromellose (Artificial Tears Eye Drops) 15 Ml Drops 15 ML OP, DROP Metoprolol Succinate (Metoprolol Succinate) 25 Mg Tab.sr.24h 1 TAB PO QAM Multivitamin (Multi Vitamin Daily) 1 Each Tablet 1 TAB PO DAILY for 30 Days, #30 TAB 0 Refills [place]-3 Acid Ethyl Esters* (Lovaza*) 1 Gm Capsule 2 CAP PO Q12H for 30 Days, #120 CAP Pantoprazole Sodium (Pantoprazole Sodium) 40 Mg Tablet. 1 TAB PO QAM Telmisartan (Telmisartan) 40 Mg Tablet 1 TAB PO DAILY Discharge Summary: HPI: 89-year-old male patient with past medical history of diabetes mellitus, hypertension, ACS, strokes, Claros's esophagus, skin cancer, came to the hospital with chief complaint of chest pain. The patient states that he had a chest pain last night approximately 930 p.m. while the patient was laying down. The patient describes this chest pain as a pressure type, for over 10 in intensity, radiation to the left arm, he denies any sweating or shortness of breath. At that time the patient decided to take nitroglycerin which he had which helped with the pain until complete resolution. The resolution of the pain last for approximately 2 minutes and the pain came back again reason for which he decided to take a 2nd nitroglycerin which helped to relieve the pain. His was concerned and the patient was taken to [facility]. Due to the concern of acute coronary syndrome the patient was transferred to [facility]. Hospital course: 89-year-old male patient came to the hospital with chief complaint of chest pain which relieved with nitroglycerin. The patient was admitted due to concerns of acute coronary syndrome. During his hospitalization the patient denied chest pain, upon the next day the patient was evaluated with Lexiscan which did not show any acute coronary syndrome. Cardiology was involved due to low ejection fraction of 35% evidenced on echocardiogram. Recommended demonstration of GDMT by Dr. Zavala and follow-up with his primary power sewing machine operator Dr. Kidd. The patient remained hemodynamically stable. The patient is eager to be discharged home. The patient will be discharged home. Discharge course: The patient remained hemodynamically stable. The patient will be discharged with the following instructions: Come back to the emergency department or call 911 if severe chest pain, shortness of breath, fever sensation is evidenced. Take your home medication. Follow up with Dr. Kidd within 2 weeks. Follow up with your primary care p[hysician within 2 weeks. Take jardiance 1 tablet of 10 mg daily. Take spirinolactone 1 tablet of 25 mg daily. Physical exam: General: Well alert, well oriented, not confused, not agitated, not in acute distress, well cooperated during the physical. HEENT: Conjunctive are pink, sclerae clear, no icterus, pupil is equal in both sides, reactive to light, no ear discharge, no pharyngeal erythema or an edema. Neck: Supple, no JVD, no lymphadenopathy and thyromegaly. Chest: Equal air entry on both lungs, no additional sounds no rhonchi no wheezing at the moment. Presence of pacemaker in the left side of the chest Cardiovascular: S1-S2 regular sinus rhythm and, regular rate, no gallops, no rubs, no murmurs Abdomen: No visible peristalsis, Bowel sounds present on auscultation, soft, nontender, no guarding, no rigidity Extremities: No obvious deformities, no pitting edema bilaterally, capillary refill intact, peripheral pulsations are intact on both sides Central Nervous System: No focal neurological deficits, no motor or sensory weakness in all 4 extremities, could move all 4 extremities, 2+ deep tendon reflexes, negative Babinski. Musculoskeletal: No joint swelling, deformities, inflammations, and no scoliosis and back tenderness Skin: Warm and dry. Vital Signs Date Time Temp Pulse Resp B/P (MAP) Pulse Ox O2 Delivery O2 Flow Rate FiO2 02/16/25 11:00 98.6 60 18 128/44 (72) 97 Room Air 02/15/25 10:52 0.0 02/14/25 09:33 N/A Laboratory Tests Test 02/14/25 17:34 02/15/25 06:12 02/15/25 18:34 02/16/25 05:35 Hemoglobin A1c 6.0 % Osmolality 301 MOSM/K Iron Level 48 UG/DL Total Iron Binding Capacity 295 UG/DL Percent Iron Saturation 16 % Ferritin 97 NG/ML Triglycerides Level 56 MG/DL Cholesterol Level 129 MG/DL LDL Cholesterol 62 MG/DL HDL Cholesterol 51 MG/DL Cholesterol/HDL Ratio 2.5 Thyroid Stimulating Hormone (TSH) 11.90 ulU/ml Chemistry Comments White Blood Count 7.4 X10'3 8.2 X10'3 Red Blood Count 3.78 X10'6 3.83 X10'6 Hemoglobin 12.0 g/dl 12.1 g/dl Hematocrit 35.3 % 36.1 % Mean Corpuscular Volume 93.6 FL 94.3 FL Mean Corpuscular Hemoglobin 31.8 PG 31.5 PG Mean Corpuscular Hemoglobin Concent 34.0 g/dL 33.5 g/dL Red Cell Distribution Width 15.1 % 15.2 % Platelet Count 243 X10'3 238 X10'3 Mean Platelet Volume 7.7 FL 7.9 FL Neutrophils (%) (Auto) 63.8 % 64.3 % Lymphocytes (%) (Auto) 22.9 % 23.2 % Monocytes (%) (Auto) 9.9 % 9.3 % Eosinophils (%) (Auto) 3.1 % 2.7 % Basophils (%) (Auto) 0.3 % 0.5 % Neutrophils # (Auto) 4.7 X10'3 5.3 X10'3 Lymphocytes # (Auto) 1.7 X10'3 1.9 X10'3 Monocytes # (Auto) 0.7 X10'3 0.8 X10'3 Eosinophils # (Auto) 0.2 X10'3 0.2 X10'3 Basophils # (Auto) 0.0 X10'3 0.0 X10'3 CBC Comment Sodium Level 145 MMOL/L 142 MMOL/L Potassium Level 4.0 MMOL/L 3.8 MMOL/L Chloride Level 110 MMOL/L 107 MMOL/L Carbon Dioxide Level 27.6 MMOL/L 26.8 MMOL/L Anion Gap 7 8 Blood Urea Nitrogen 15 MG/DL 18 MG/DL Creatinine 1.26 MG/DL 1.52 MG/DL Estimated GFR/1.73 m2 54 ML/MIN 43 ML/MIN BUN/Creatinine Ratio 11.9 11.8 Glucose Level 90 MG/DL 86 MG/DL Calcium Level 8.3 MG/DL 8.5 MG/DL Total Bilirubin 0.7 MG/DL 0.9 MG/DL Aspartate Amino Transf (AST/SGOT) 27 U/L 34 U/L Alanine Aminotransferase (ALT/SGPT) 23 U/L 22 U/L Alkaline Phosphatase 113 IU/L 115 IU/L Total Protein 5.9 G/DL 6.2 G/DL Albumin 2.6 G/DL 2.8 G/DL Globulin 3.3 G/DL 3.4 G/DL Albumin/Globulin Ratio 0.8 0.8 Free Thyroxine 0.82 NG/DL Urine Eosinophils No eos /HPF Urine Osmolality 276 MOSM/K Urine Random Creatinine 63.0 MG/DL Urine Random Total Protein 12.1 MG/DL Urine Random Sodium 32 MEQ/L Urine Random Urea 437.0 MG/DL *Problems/Diagnosis: (1) Stable angina Status: Chronic (2) Congestive heart failure Status: Chronic Total Time Spent on D/C: > 30 Minutes Date of Service: Feb 16, 2025 Billing Provider: RAISSA CAPELLAN MD Common Visit Codes: 20504-SWC/[id number] DISCH DAY >30min LENIN KLEIN, RES Feb 16, 2025 12:18 RAISSA CAPELLAN MD Feb 16, 2025 17:12
== END 2025-02-16 11:45 | disposition home or self-care (01) | DRG 381 ==
LOC: ER 08:54 → ED HOLD 11:15 → PCU 3S 19:15
PROVIDERS: ADMIT Internal Medicine; ATTEND Internal Medicine
PROC: 4A02XM4 Measurement of Cardiac Total Activity, External Approach (ICD-10-PCS; principal; 2025-02-15)
PROC: 3E033HZ Introduction of Radioactive Substance into Peripheral Vein, Percutaneous Approach (ICD-10-PCS; 2025-02-15)
DX: K22.70 Barrett's esophagus without dysplasia (principal); I13.0 Hypertensive heart and chronic kidney disease with heart failure and stage 1 through stage 4 chronic kidney disease, or unspecified chronic kidney disease; N17.9 Acute kidney failure, unspecified; I50.22 Chronic systolic (congestive) heart failure; K21.9 Gastro-esophageal reflux disease without esophagitis; I25.118 Atherosclerotic heart disease of native coronary artery with other forms of angina pectoris; E86.0 Dehydration; I48.0 Paroxysmal atrial fibrillation; E78.5 Hyperlipidemia, unspecified; E11.22 Type 2 diabetes mellitus with diabetic chronic kidney disease; N18.9 Chronic kidney disease, unspecified; D63.8 Anemia in other chronic diseases classified elsewhere; I35.0 Nonrheumatic aortic (valve) stenosis; Z79.01 Long term (current) use of anticoagulants; Z79.82 Long term (current) use of aspirin; Z79.899 Other long term (current) drug therapy; Z95.5 Presence of coronary angioplasty implant and graft; Z95.0 Presence of cardiac pacemaker; I69.398 Other sequelae of cerebral infarction
CPT/HCPCS: 36415; 71045; 78452; 80053; 80061; 82570; 82728; 83036; 83540; 83550; 83880; 83930; 83935; 84156; 84300; 84439; 84443; 84484; 84540; 85025; 85379; 85610; 87081; 87207; 93005; 93017; 93306; 99285; A6253; A6446; A6449; A9500; G0378; J1644; J2785; J7030